=== PATIENT | male | born 1995 | race Caucasian/White ===

== ENCOUNTER 2022-02-27 14:58 | Emergency (ER) | payer SELFPAY ==
[2022-02-27 17:51] LABS: ALT (SGPT) 17 U/L (8-55); AST (SGOT) 23 U/L (5-34); Albumin 5.2 g/dL (3.5-5.0); Alkaline Phosphatase 116 U/L (40-110); Anion Gap 18 mmol/L (10-20); BUN (Urea Nitrogen) 15 mg/dL (8.9-20.6); Bilirubin, Total 1.4 mg/dL (0.2-1.2); Calc. Creatinine Clearance 0 mL/min (70-130); Calcium 9.8 mg/dL (7.8-10.44); Carbon Dioxide 24 mmol/L (22-29); Chloride 100 mmol/L (98-107); Estimated GFR 94; Globulin 3.1 g/dL (2.4-3.5); Glucose 76 mg/dL (70-105); Protein, Total 8.3 g/dL (6.0-8.3); Sodium 138 mmol/L (136-145)
[2022-02-27 18:40] LABS: Syphilis Antibody Nonreactive (Nonreactive); Syphilis Antibody Index 0.04 S/CO (<1.00 Non-Reactive)
== END 2022-02-27 18:04 | disposition home or self-care (01) ==
LOC: ERS 14:58
DX: L30.9 Dermatitis, unspecified (principal)
CPT/HCPCS: 36415; 80053; 86780; 99283

== ENCOUNTER 2022-04-17 20:22 | Emergency (ER) | payer SELFPAY ==
[2022-04-17 21:58] LABS: Bacteria/HPF None Seen HPF (None Seen); Bilirubin Negative (Negative); Blood, Urine Negative (Negative); Clarity Turbid (Clear); Glucose, Urine (Dipstick) Normal (Negative); Ketone, Urine Negative (Negative); Leukocyte Negative Leu/uL (Negative); Nitrite Negative (Negative); Protein, Urine (Dipstick) 30 mg/dL (Neg-Trace); RBC/HPF 0-3 HPF (0-3); Specific Gravity, Urine 1.029 (1.002-1.036); Squamous Epithelial 0-3 HPF (0-3); WBC/HPF 0-3 HPF (0-3)
[2022-04-18 14:16] LABS: Chlam.trachomatis by PCR,Urine Not Detected (NotDetected)
== END 2022-04-17 22:40 | disposition home or self-care (01) ==
LOC: ERS 20:22
DX: R30.0 Dysuria (principal)
CPT/HCPCS: 81003; 81015; 87086; 87491; 87591; 99283

== ENCOUNTER 2022-11-01 18:40 | Emergency (ER) | payer OTHER, SELFPAY ==
[~2022-11-01 18:40] MED LIST: Iopamidol 300 61% 100 ML VIAL FS ONE; Iopamidol-370 76% 500 ML MDV (1 ML CHARGE) ONE
[2022-11-01 19:03] LABS: #Basophils 0.1 thou/uL (0.0-0.2); #Eosinphils 0.6 thou/uL (0.0-0.7); #Lymphocytes 1.9 thou/uL (1.20-3.40); #Monocytes 0.8 thou/uL (0.11-0.59); #Neutrophils 9.5 thou/uL (1.40-6.50); %Basophils 0.5 % (0.0-1.0); %Eosinophils 4.4 % (0.0-10.0); %Lymphocytes 14.8 % (21.0-51.0); %Monocytes 6.2 % (0.0-10.0); Hemoglobin 13.7 g/dL (14.0-18.0); Mean Corpuscular HGB CONC 36.3 g/dL (32.0-36.0); Mean Corpuscular Hemoglobin 34.5 pg (27.0-31.0); Mean Platelet Volume 7.5 fL (7.4-10.4); Platelet Count 327 10x3/uL (130-400); RBC Distribution Width 11.5 % (11.5-14.5); Red Blood Cell (RBC) Count 3.96 mill/uL (4.70-6.10); White Blood Cell (WBC) Count 12.8 10x3/uL (4.8-10.8)
[2022-11-01] MEDS ORDERED: fentaNYL 50 mcg/mL 1 mL Vial ONE ×2 (19:10→19:55)
[2022-11-01 19:23] LABS: ALT (SGPT) 20 U/L (8-55); AST (SGOT) 21 U/L (5-34); Albumin 4.6 g/dL (3.5-5.0); Alkaline Phosphatase 96 U/L (40-110); Anion Gap 16 mmol/L (10-20); BUN (Urea Nitrogen) 22 mg/dL (8.9-20.6); Bilirubin, Total 0.7 mg/dL (0.2-1.2); CK (CPK) 178 U/L (30-200); Calc. Creatinine Clearance 0 mL/min (70-130); Calcium 9.5 mg/dL (7.8-10.44); Carbon Dioxide 23 mmol/L (22-29); Chloride 105 mmol/L (98-107); Estimated GFR 73; Globulin 2.8 g/dL (2.4-3.5); Glucose 112 mg/dL (70-105); Potassium 3.6 mmol/L (3.5-5.1); Protein, Total 7.4 g/dL (6.0-8.3); Sodium 140 mmol/L (136-145)
[2022-11-01 19:24] LABS: PTT 25.6 sec (22.9-36.1)
[2022-11-01] MEDS ORDERED: Ketorolac Tromethamine 30 MG/ML VIAL ONE (20:49)
[2022-11-01] MEDS ORDERED: Lidocaine 1% PF 5 ML VIAL ONE (21:50)
[2022-11-02 00:56] LABS: Bacteria/HPF None Seen HPF (None Seen); Bilirubin Negative (Negative); Blood, Urine Trace (Negative); Clarity Clear (Clear); Glucose, Urine (Dipstick) Normal (Negative); Ketone, Urine Negative (Negative); Leukocyte Negative Leu/uL (Negative); Nitrite Negative (Negative); Protein, Urine (Dipstick) 20 mg/dL (Neg-Trace); Squamous Epithelial 0-3 HPF (0-3); Urobilinogen Normal mg/dL (Less than 2); WBC/HPF 0-3 HPF (0-3)
[2022-11-02 01:14] LABS: Calcium Oxalate Crystals 1+ HPF (None Seen); Specific Gravity, Urine Greater than 1.060 (1.002-1.036)
== END 2022-11-02 00:21 | disposition home or self-care (01) ==
LOC: ERS 18:40
DX: S82.111A Displaced fracture of right tibial spine, initial encounter for closed fracture (principal); S01.312A Laceration without foreign body of left ear, initial encounter; S30.21XA Contusion of penis, initial encounter; F17.200 Nicotine dependence, unspecified, uncomplicated; V29.498A Other motorcycle driver injured in collision with other motor vehicles in traffic accident, initial encounter
CPT/HCPCS: 51610; 70450; 71260; 72125; 74177; 74450; 80053; 81003; 81015; 82550; 85025; 85610; 85730; 86850; 86900; 86901; 96374; 96375; 96376; J1885; J3010; Q9967

== ENCOUNTER 2023-08-17 18:29 | Emergency (ER) | payer SELFPAY ==
[2023-08-17] MEDS ORDERED: Ibuprofen 800 MG TAB ONE (18:52)
== END 2023-08-17 19:25 | disposition home or self-care (01) ==
LOC: EEVIPCON 18:29 → ERS 18:29
DX: S40.011A Contusion of right shoulder, initial encounter (principal); V23.41XA Electric (assisted) bicycle driver injured in collision with car, pick-up truck or van in traffic accident, initial encounter; Z72.0 Tobacco use
CPT/HCPCS: 99283